=== PATIENT | female | born 1955 | race African-American/Black ===

== ENCOUNTER 2019-07-12 07:08 | Day surgery (SDC) | payer OTHER ==
[2019-07-11 13:18] VITALS: BMI 30.9
[2019-07-12] MEDS ORDERED: PROPOFOL 20 ML ONE ×3 (07:53→08:45)
[2019-07-12] MEDS ORDERED: LIDOCAINE HCL/PF 2% SDV 5ML VIAL ONE (07:53)
[2019-07-12 09:06] VITALS: TEMP 97.4
[2019-07-12 09:37] VITALS: PULSE 65
[2019-07-12 09:56] VITALS: BP 108/46
--- NOTE | 2019-07-14 16:11 | PATH ---
Surgical Pathology Report Patient Name: SCOTT MAYS [facility]. Rec. #: [id number] /Age/Gender: 1955 (Age: 64) / F Account: [id number] Location: [facility] Taken: 07/12/2019 Received: 07/12/2019 Reported: 07/14/2019 Physicians: Frantz Yarbrough M.D. Specimen(s) Received A: POLYP MID RIGHT COLON B: POLYP PROXIMAL RIGHT COLON Clinical History History of polyps Postoperative diagnosis: Colon polyps, diverticulosis Final Diagnosis A. MID RIGHT COLON POLYP, POLYPECTOMY: TUBULAR ADENOMA, TWO FRAGMENTS. B. PROXIMAL RIGHT COLON POLYP, POLYPECTOMY: TUBULAR ADENOMA. Electronically Signed Evon Aguirre M.D. Gross Description A. Received in formalin, labeled "biopsy polyp right colon" are 2 perkins, irregular portions of soft tissue measuring 0.3 and 0.5 cm. in greatest dimension. The specimens are submitted in toto in one cassette. B. Received in formalin, labeled "biopsy polyp proximal right colon" is a perkins, irregular portion of soft tissue measuring 0.8 cm. in greatest dimension. The specimen is submitted in toto in one cassette. /07/13/2019 saudi07/13/2019
== END 2019-07-12 09:50 | disposition home or self-care (01) ==
LOC: FASU-ENDO 07:08
PROVIDERS: ATTEND Internal Medicine Gastroenterology
PROC: 0DBK8ZX Excision of Ascending Colon, Via Natural or Artificial Opening Endoscopic, Diagnostic (ICD-10-PCS; principal; 2019-07-12 08:34)
DX: Z86.010 Personal history of colon polyps (principal); D12.2 Benign neoplasm of ascending colon; K57.30 Diverticulosis of large intestine without perforation or abscess without bleeding
CPT/HCPCS: 82962; 88305-TC

== ENCOUNTER 2022-09-24 06:49 | Day surgery (SDC) | payer OTHER ==
[2022-09-21 16:26] VITALS: BMI 35.9
[2022-09-24] MEDS ORDERED: LIDOCAINE HCL/PF 2% SDV 5ML VIAL ONE (07:16)
[2022-09-24] MEDS ORDERED: PROPOFOL 120 ML ONE (07:17)
[2022-09-24 08:58] VITALS: TEMP 98
[2022-09-24 09:02] VITALS: BP 113/59; PULSE 65; RESP 19
== END 2022-09-24 09:06 | disposition home or self-care (01) ==
LOC: FASU-ENDO 06:49
PROVIDERS: ATTEND Internal Medicine Gastroenterology
PROC: 0DBN8ZX Excision of Sigmoid Colon, Via Natural or Artificial Opening Endoscopic, Diagnostic (ICD-10-PCS; principal; 2022-09-24 08:17)
DX: Z12.11 Encounter for screening for malignant neoplasm of colon (principal); K63.5 Polyp of colon; K57.30 Diverticulosis of large intestine without perforation or abscess without bleeding; Z86.010 Personal history of colon polyps
CPT/HCPCS: 82962; 88305-TC